=== PATIENT | male | born 1980 | race African-American/Black ===

== ENCOUNTER 2016-12-31 06:18 | Emergency (ER) | payer SELFPAY ==
--- NOTE | ~2016-12-31 | ER ---
PATIENT'S NAME: ARLEY SANDERS [facility] AGE: 36 Y [address] ROOM: [place] [id number] LOCATION: [facility] ADMIT DATE: 12/31/2016 ER/Outpatient Report DISCHARGE DATE: 12/31/2016 FAMILY PHYSICIAN: PHYSICIAN, NO ATTENDING PHYSICIAN: Lashanda Thorpe TIME OF ARRIVAL: 0618 hours. TIME SEEN: 0710 hours. IDENTIFICATION: A 36-year-old male. CHIEF COMPLAINT: Toothache. HISTORY OF PRESENT ILLNESS: The patient is a 36-year-old male with a toothache that has been bothering him for 2 years off and on, 4 days this particular time. He has not been seen here for this pain before. He has had no fever, chills, nausea, or vomiting. He has pain on the left side of his face and swelling. ALLERGIES: NO KNOWN DRUG ALLERGIES. CURRENT MEDICATIONS: He has tried ibuprofen without relief. MEDICAL PROBLEMS: Denies. No prior surgeries or hospitalizations. SOCIAL HISTORY: The patient works for [employer] and lives here in [place]. Tobacco use: One pack per day. Alcohol use: He did drink a 5th of tequila last night. Usually, he drinks just one a month. Marijuana: Occasional. REVIEW OF SYSTEMS: All systems reviewed and negative other than what is noted in the HPI. FAMILY HISTORY: No pertinent family history. PHYSICAL EXAMINATION: PATIENT'S NAME: ARLEY SANDERS [facility] AGE: 36 Y [address] ROOM: [place] [id number] LOCATION: [facility] ADMIT DATE: 12/31/2016 ER/Outpatient Report DISCHARGE DATE: 12/31/2016 FAMILY PHYSICIAN: PHYSICIAN, TYLER ATTENDING PHYSICIAN: Lashanda Thorpe VITAL SIGNS: Weight 104.8 kg, blood pressure 135/97, pulse 60, respirations 16, temperature 97.4, and saturation is 97%. GENERAL: A 36-year-old male, in no acute distress. HEENT: Head: Normocephalic, atraumatic. Ears: TMs translucent, both ears. Nose: Mucosa pink, no lesions. Mouth: Teeth in poor repair. He has a broken abscessed tooth in his left upper first molar, tender to palpation. He has some swelling of his cheek, tender to palpation. No erythema. NECK: Supple. No lymphadenopathy. No nuchal rigidity. LUNGS: Clear to auscultation. No rhonchi, wheezes, or rales. HEART: Regular rate and rhythm. ABDOMEN: Soft, nondistended, and nontender. SKIN: [place], warm, and dry. No lesions or rashes noted. NEUROLOGIC: No focal deficit. EMERGENCY DEPARTMENT COURSE: The patient was given Toradol 60 mg IM for the pain. IMPRESSION: Tooth abscess. PLAN: Amoxicillin 500 mg 2 tablets b.i.d. for 10 days. He will remain off work today, okay to return on Monday. [place] one to two p.o. q.4-6 hours p.r.n. severe pain, dispensed 15, with 0 refills. Follow up with a dentist next week, follow up sooner if any problems or concerns. LASHANDA THORPE MD CAR/modl /[id number] d: 12/31/16 1533 t: 01/03/17 1423, OUTPATIENT REPORT
== END 2016-12-31 07:30 | disposition disaster alternative care site (69) ==
LOC: GMED 06:18
DX: K04.7 Periapical abscess without sinus (principal); F17.210 Nicotine dependence, cigarettes, uncomplicated
CPT/HCPCS: J1885